=== PATIENT | male | born 1980 | race Caucasian/White ===

== ENCOUNTER 2018-10-03 10:28 | Emergency (ER) | payer OTHER ==
[2018-10-03] MEDS ORDERED: OXYCODONE/APAP 5/325 TAB PO ONE (11:06)
[2018-10-03] MEDS ORDERED: CEPHALEXIN 500 MG CAP PO ONE (11:06)
--- NOTE | 2018-10-03 11:10 | EDPHY ---
H & P Smoking Status: Current every day smoker Time Seen by Provider: 10/03/18 11:01 HPI/ROS: CHIEF COMPLAINT: Left 5th digit injury HISTORY OF PRESENT ILLNESS: 38-year-old [id number] male with up-to- date tetanus, complaining of laceration from a drill bit which impacted his left 5th digit distal phalanx DIP joint. Limited flexion at the D IP joint. Occurred shortly prior to arrival while he was at work. PHYSICAL EXAM (Prior to examination, patient consented to physical exam, hands were washed and my usual and customary physical exam procedures followed) 1) GENERAL: Well-developed, well-nourished, alert and oriented. Appears to be in no acute distress. 2) HEAD: Normocephalic 3) HEENT: sclera anicteric 4) LUNGS: Breathing comfortably. 5) SKIN: Left 5th digit: Transverse laceration at the DIP joint measuring 1.5 cm. 6) MUSCULOSKELETAL: FDS intact. FDP dysfunction noted. 7) NEUROLOGIC: Two-point discrimination full sensation distally. (Sourav Ervin) Constitutional: Initial Vital Signs Temperature (C) 37.2 C 10/03/18 10:32 Heart Rate 62 10/03/18 10:32 Respiratory Rate 18 10/03/18 10:32 Blood Pressure 135/84 H 10/03/18 10:32 O2 Sat (%) 99 10/03/18 10:32 O2 Delivery Mode Room Air Allergies/Adverse Reactions: No Known Allergies Allergy (Unverified 10/03/18 10:31) Home Medications: Medication Instructions Recorded Cephalexin [Keflex] 500 mg PO TID 5 Days cap 10/03/18 MDM/Departure - [facility] Imaging Results: Imaging Impressions Finger X-Ray 10/03/18 10:47 Impression: 1. Possible small chip or avulsion fractures around the DIP joints left fifth digit versus radiopaque foreign bodies. Images reviewed myself (Sourav Ervin) Procedures: Procedure: Laceration repair. I explained the indications, risks and benefits for both laceration repair and anesthetic administration. Verbal consent was obtained from the patient. The laceration on the left 5th digit was anesthetized using 0.5% bupivicaine without epinephrine digital nerve block. After anesthetic administered the patient was observed for a period of time and had no apparent adverse effects. The wound was cleaned, prepped, draped in normal sterile fashion and explored to its base. No foreign body seen, no foreign bodies palpated. There were no deep structures involved. The skin was closed with 5 simple interrupted 5 O Prolene sutures.. The wound repair was complex due to likely involvement of the flexor tendon. The procedure was performed by myself. Patient has been informed that scarring will occur, although efforts have been made to minimize this. Procedure: Splint An [place] splint was applied by ER smog technician. After application of the splint I returned and re-examined the patient. The splint was adequately immobilizing the joint and distal to the splint the patient's circulation and sensation were intact. (Sourav Ervin) Medications Given: Discontinued Medications Cephalexin HCl (Keflex) 500 mg PO EDNOW ONE PRN Reason: Protocol Stop: 10/03/18 11:07 Last Admin: 10/03/18 11:24 Dose: 500 mg Oxycodone/Acetaminophen (Percocet 5/325) 1 tab PO EDNOW ONE Stop: 10/03/18 11:07 Last Admin: 10/03/18 11:24 Dose: 1 tab ED Course/Re-evaluation: 12:03 p.m.: Phone consultation with Dr. Jimenez, on-call hand surgery is patient noted to have FDP dysfunction and a stab wound to the tendon. Patient has been informed that he is at risk of tenosynovitis and is started on antibiotics and will plan on following up with Dr. Jimenez in a few days as indicated on discharge instructions. Care of patient under supervision of secondary supervising physician Dr Wheatley . (Sourav Ervin) - Depart Disposition: Home, Routine, Self-Care Clinical Impression: Finger laceration involving tendon Qualifiers: Encounter type: initial encounter Qualified Code(s): S61.219A - Laceration without foreign body of unspecified finger without damage to nail, initial encounter Condition: Good Instructions: Finger Laceration (ED), Tendon Laceration (ED) Additional Instructions: Return to the ER if you develop redness, swelling, discharge, warmth to the wound, red streaks going up your arm, if you develop redness on your finger, or any other symptoms that concern you. Regresar a la yanet de Emergencia si desarolla rojez, hinchazon, calor en la herida, vinod rankin subiendo tolentino brazo, y desarolla rojez a tolentino dedo, u cualquier otra sintoma que te preocupa. Llamar para vincent hoy el lunes con Dr. Jimenez ([facility]). Stand Alone Forms: Work Comp Follow Up Prescriptions: Cephalexin [Keflex] 500 mg PO TID 5 Days cap Referrals: Gene Jimenez MD [Medical Doctor] - 2-3 days, call for appt. Print Language: [place]
[2018-10-03 12:52] VITALS: BP 132/88
== END 2018-10-03 12:52 | disposition home or self-care (01) ==
PROC: 0HQGXZZ Repair Left Hand Skin, External Approach (ICD-10-PCS; principal; 2018-10-03)
DX: S61.217A Laceration without foreign body of left little finger without damage to nail, initial encounter (principal); W31.89XA Contact with other specified machinery, initial encounter; Y99.0 Civilian activity done for income or pay
CPT/HCPCS: L3925